=== PATIENT | male | born 1965 | race Caucasian/White ===

== ENCOUNTER 2019-02-26 08:24 | Day surgery (SDC) | payer OTHER ==
[~2019-02-26] VITALS: Ht 179.1 cm; Wt 78.7 kg
[2019-02-26 09:17] VITALS: BP 142/84
== END 2019-02-26 12:15 | disposition home or self-care (01) ==
LOC: OUT 08:24
PROVIDERS: ATTEND Colon & Rectal Surgery
DX: D12.8 Benign neoplasm of rectum (principal); Z79.899 Other long term (current) drug therapy; Z72.89 Other problems related to lifestyle; Z87.891 Personal history of nicotine dependence
CPT/HCPCS: 45172; 88305; J0690; J1100; J2405; J2704; J3010; J7120